=== PATIENT | male | born 1950 | race Hispanic/Latino ===

== ENCOUNTER → 2019-10-27 | Outpatient (CLI) | payer MEDICARE | LOC: CARD 08:44 | PROVIDERS: ATTEND Emergency Medicine | DX: I73.9 Peripheral vascular disease, unspecified (principal) | CPT/HCPCS: 93925 ==

== ENCOUNTER → 2021-11-04 | Outpatient (CLI) | payer MEDICARE ==
[~2021-11-04] MED LIST: DIATRIZOATE MEGL/DIATRIZOA SOD 30 ML BTL PO ONE
== END ==
LOC: CT 07:22
PROVIDERS: ATTEND Emergency Medicine
DX: R07.9 Chest pain, unspecified (principal); R10.813 Right lower quadrant abdominal tenderness
CPT/HCPCS: 71046; 74176

== ENCOUNTER → 2022-05-16 | Outpatient (CLI) | payer MEDICARE | LOC: CARD 08:38 | PROVIDERS: ATTEND Emergency Medicine | DX: I65.23 Occlusion and stenosis of bilateral carotid arteries (principal) | CPT/HCPCS: 93880 ==